=== PATIENT | female | born 1945 | race Caucasian/White ===

== ENCOUNTER 2016-06-12 08:36 | Emergency (ER) | payer MEDICARE ==
[2016-06-12 09:11] VITALS: BP 140/70
--- NOTE | 2016-06-12 10:31 | UC ---
Back Pain HPI - HPI Summary HPI Summary: pt c/o gradual onset of left side buttock and low back pain that began 3 weeks ago and is now radiating down her left leg to knee. - History of Current Complaint Chief Complaint: UCBackPain Stated Complaint: LEFT SIDE BACK & LEG PAIN Time Seen by Provider: 06/12/16 10:23 Hx Obtained From: Patient ?: No Onset/Duration: Gradual Onset, Lasting Weeks Timing: Constant Severity Initially: Mild Severity Currently: Mild Back Pain: Is Discrete @ - left buttock, Radiates To - left knee, posterior Alleviating: Rest Associated Signs And Symptoms: Positive: Negative - Allergies/Home Medications Allergies/Adverse Reactions: Allergies Allergy/AdvReac Type Severity Reaction Status Date / Time Nitroglycerin Allergy Hallucinati Verified 06/12/16 09:03 ons Home Medications: Home Medications Atorvastatin* [Lipitor 40 MG*] 40 mg PO QPM 06/12/16 [History Confirmed 06/12/16 ] Cholecalciferol [Vitamin D3 Ultra Strength] 5,000 unit PO QPM 06/12/16 [History Confirmed 06/12/16] Cinnamon 1,000 mg PO QPM 06/12/16 [History Confirmed 06/12/16] Multivitamins/Minerals TAB* [Thera M Plus TAB*] 1 tab PO QPM 06/12/16 [History Confirmed 06/12/16] PMH/Surg Hx/FS Hx/Imm Hx Previously Healthy: Yes 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" Cardiovascular History Of: Reports: Hypertension - Surgical History Surgical History: Yes Surgery Procedure, Year, and Place: Left Mastectomy, 2015, [facility]; Lumpectomies; Hysterectomy, 1998, [place] - Family History Known Family History: Positive: Diabetes - mother - Social History Occupation: Employed Full-time Lives: With Family Alcohol Use: None Substance Use Type: None Smoking Status (MU): Former Smoker Type: Cigarettes Amount Used/How Often: 1/3-1/2 PPD Length of Time of Smoking/Using Tobacco: 23 Years Have You Smoked in the Last Year: No When Did the Patient Quit Smoking/Using Tobacco: ~1994 - Immunization History Most Recent Influenza Vaccination: February 2016 Review of Systems Constitutional: Negative Skin: Negative Eyes: Negative ENT: Negative Respiratory: Negative Cardiovascular: Negative Gastrointestinal: Negative Genitourinary: Negative Motor: Negative Neurovascular: Negative Musculoskeletal: Myalgia Neurological: Negative Psychological: Negative All Other Systems Reviewed And Are Negative: Yes Physical Exam Triage Information Reviewed: Yes Appearance: Well-Appearing Vital Signs: Initial Vital Signs Temp 99.2 F 06/12/16 09:01 Pulse 72 06/12/16 09:01 Resp 16 06/12/16 09:01 BP 140/70 06/12/16 09:01 Pulse Ox 100 06/12/16 09:01 Vital Signs Reviewed: Yes Eye Exam: Normal ENT Exam: Normal Neck exam: Normal Respiratory Exam: Normal Cardiovascular Exam: Normal Musculoskeletal Exam: Normal Neurological Exam: Normal Psychological Exam: Normal Skin Exam: Normal Back Pain Course/Dx - Differential Dx/Diagnosis Differential Diagnosis/HQI/PQRI: Herniated Disc, Strain, Other - sicatica Provider Diagnoses: sciatica Discharge - Discharge Plan Condition: Stable Disposition: HOME Prescriptions: Ibuprofen TAB* [Motrin TAB* 600 MG] 600 mg PO Q6H PRN #12 tab PRN Reason: Pain predniSONE TAB* [Deltasone TAB*] 30 mg PO DAILY #12 tab Patient Education Materials: Sciatica (ED), Lower Back Exercises (ED) Referrals: Too Guillen MD [Primary Care Provider] -
== END 2016-06-12 10:50 | disposition home or self-care (01) ==
LOC: UCCORT 08:36
DX: M54.30 Sciatica, unspecified side (principal); E11.9 Type 2 diabetes mellitus without complications; I10 Essential (primary) hypertension; Z87.891 Personal history of nicotine dependence; Z88.8 Allergy status to other drugs, medicaments and biological substances
CPT/HCPCS: 99212; G0463